=== PATIENT | male | born 1935 | race Caucasian/White ===

== ENCOUNTER → 2018-01-23 | Outpatient (CLI) | payer OTHER, MEDICARE ==
[~2018-01-23] MED LIST: TRAMADOL 50 MG50 MG PO; ZETIA10 MG PO; ZOLOFT100 MG PO
== END ==
LOC: RAD 10:16
DX: J44.1 Chronic obstructive pulmonary disease with (acute) exacerbation (principal); J98.11 Atelectasis; R91.8 Other nonspecific abnormal finding of lung field; R06.02 Shortness of breath